=== PATIENT | female | born 1975 | race African-American/Black ===

== ENCOUNTER 2016-10-21 05:04 | Emergency (ER) | payer MEDICAID ==
[~2016-10-21] VITALS: Ht 160 cm; Wt 96.4 kg
[2016-10-21] MEDS ORDERED: AZITHROMYCIN 500 MG TABLET ONE (05:47)
[2016-10-21] MEDS ORDERED: CEFTRIAXONE 250 MG ONE (05:48)
[2016-10-21] MEDS ORDERED: AZITHROMYCIN 500 MG TABLET PO ONE (06:00)
[2016-10-21] MEDS ORDERED: CEFTRIAXONE 250 MG IM ONE (06:00)
[2016-10-21] MEDS ORDERED: BICILLIN-LA 2,400,000 UNITS/4 ML IM ONE (06:00)
[2016-10-21 06:22] LABS: HCG UR OBC PASS
[2016-10-21 06:26] VITALS: BP 165/110
== END 2016-10-21 06:29 | disposition home or self-care (01) ==
LOC: ED 05:39
DX: Z20.2 Contact with and (suspected) exposure to infections with a predominantly sexual mode of transmission (principal); A53.9 Syphilis, unspecified; A54.9 Gonococcal infection, unspecified; A74.9 Chlamydial infection, unspecified
CPT/HCPCS: 81003; 81025; 96372; 99284; J0561; J0696

== ENCOUNTER 2017-10-06 23:55 | Emergency (ER) | payer MEDICAID ==
[~2017-10-06] VITALS: Ht 160 cm; Wt 97.7 kg
[2017-10-07] MEDS ORDERED: BP MED (00:17)
[2017-10-07 01:28] LABS: BASOPHILS # (AUTO) 0.05 x10^3/uL (0-0.1); BASOPHILS % (AUTO) 1 % (0-1); EOSINOPHILS # (AUTO) 0.13 x10^3/uL (0-0.4); EOSINOPHILS % (AUTO) 1 % (1-7); LYMPHOCYTES # (AUTO) 3.75 x10^3/uL (1-3.4); LYMPHOCYTES % (AUTO) 40 % (22-44); MD NO; MEAN CORPUSCULAR HEMOGLOBIN 28.2 pg (27.0-34.8); MEAN CORPUSCULAR HGB CONC 32.5 g/dL (32.4-35.8); MEAN CORPUSCULAR VOLUME 86.8 fL (80-100); MEAN PLATELET VOLUME 8.6 fL (7.4-10.4); MONOCYTES # (AUTO) 0.77 x10^3/uL (0.2-0.8); MONOCYTES % (AUTO) 8 % (2-9); NEUTROPHILS # (AUTO) 4.79 x10^3/uL (1.8-6.8); NEUTROPHILS % (AUTO) 51 % (42-75); PLATELET COUNT 352 x10^3/uL (130-400); RED BLOOD COUNT 4.76 x10^6/uL (3.82-5.3); RED CELL DISTRIBUTION WIDTH 13.5 % (9.6-15.2)
[2017-10-07] MEDS ORDERED: BENZONATATE 100 MG CAPSULE ONE (01:28)
[2017-10-07 01:29] LABS: ALBUMIN 3.4 g/dL (3.4-5.0); ANION GAP 6 mmol/L (5-15); CALCIUM 8.9 mg/dL (8.5-10.1); CHLORIDE 108 mmol/L (98-107)
[2017-10-07] MEDS ORDERED: BENZONATATE 100 MG CAPSULE PO ONE (01:30)
[2017-10-07 01:33] LABS: ALANINE AMINOTRANSFERASE 30 U/L (12-78); ALKALINE PHOSPHATASE 94 U/L (45-117); BILIRUBIN,TOTAL 0.4 mg/dL (0.2-1.0); CREATININE 0.77 mg/dL (0.55-1.02); TOTAL PROTEIN 7.4 g/dL (6.4-8.2)
[2017-10-07 01:59] VITALS: BP 168/98
== END 2017-10-07 02:07 | disposition home or self-care (01) ==
LOC: ED 10-07 01:13
DX: G44.89 Other headache syndrome (principal); I10 Essential (primary) hypertension; R05 Cough; R09.81 Nasal congestion; F17.210 Nicotine dependence, cigarettes, uncomplicated
CPT/HCPCS: 36415; 71046; 80053; 85025; 99285

== ENCOUNTER 2018-01-01 03:18 | Emergency (ER) | payer MEDICAID ==
[~2018-01-01] VITALS: Ht 160 cm; Wt 94.1 kg
[~2018-01-01 03:18] MED LIST: BP MED
[2018-01-01 03:19] VITALS: BP 188/117
[2018-01-01] MEDS ORDERED: IBUPROFEN 200 MG TABLET ONE (04:14)
[2018-01-01] MEDS ORDERED: BICILLIN-LA 1,200,000 UNITS/2 ML IM ONE (04:30)
[2018-01-01] MEDS ORDERED: IBUPROFEN 200 MG TABLET PO ONE (04:30)
== END 2018-01-01 04:49 | disposition home or self-care (01) ==
LOC: ED 03:37
DX: J02.0 Streptococcal pharyngitis (principal); I10 Essential (primary) hypertension; F17.200 Nicotine dependence, unspecified, uncomplicated
CPT/HCPCS: 87880; 96372; 99283; J0561

== ENCOUNTER 2018-12-10 17:17 | Emergency (ER) | payer MEDICAID ==
[~2018-12-10] VITALS: Ht 160 cm; Wt 102.0 kg
--- NOTE | 2018-12-10 17:44 | NUR ---
Pt ambulates to room with steady gait and balance. NADN. No obvious defecits observed.
[2018-12-10 18:58] LABS: BASOPHILS % (AUTO) 1 % (0-1); EOSINOPHILS # (AUTO) 0.14 x10^3/uL (0-0.4); EOSINOPHILS % (AUTO) 1 % (1-7); LYMPHOCYTES # (AUTO) 2.98 x10^3/uL (1-3.4); LYMPHOCYTES % (AUTO) 28 % (22-44); MD NO; MEAN CORPUSCULAR HEMOGLOBIN 29.1 pg (27.0-34.8); MEAN PLATELET VOLUME 8.6 fL (7.4-10.4); MONOCYTES # (AUTO) 0.71 x10^3/uL (0.2-0.8); MONOCYTES % (AUTO) 7 % (2-9); NEUTROPHILS % (AUTO) 63 % (42-75); PLATELET COUNT 321 x10^3/uL (130-400); RED BLOOD COUNT 4.69 x10^6/uL (3.82-5.3); RED CELL DISTRIBUTION WIDTH 14.1 % (9.6-15.2)
[2018-12-10 19:07] VITALS: BP 158/99
[2018-12-10 19:08] LABS: ALBUMIN 3.5 g/dL (3.4-5.0); ANION GAP 7 mmol/L (5-15); CALCIUM 8.9 mg/dL (8.5-10.1); CHLORIDE 108 mmol/L (98-107)
--- NOTE | 2018-12-10 19:08 | NUR ---
Provided bedside report to MAURICE Salcido. All questions answered. NADN. Loly RN to assume care of pt at this time.
[2018-12-10 19:15] LABS: ALANINE AMINOTRANSFERASE 26 U/L (12-78); ALKALINE PHOSPHATASE 95 U/L (45-117); BILIRUBIN,TOTAL 0.2 mg/dL (0.2-1.0); CREATININE 0.93 mg/dL (0.55-1.02)
--- NOTE | 2018-12-10 20:09 | NUR ---
PATIENT SLEEPING IN ROOM, NO NEEDS IDENTIFIED. DIFFICULT TO WAKE PATIENT UP, PATIENT STATED THAT SHE WAS "TIRED". PATIENT'S PULSE OX WITHIN NORMAL LIMITS WHEN AWAKE AND STIMULATED. PATIENT DOES BEGAN TO DECREASE IN OXYGENATION WHILE SLEEPING, PATIENT SNORES. PATIENT DENIES ANY SLEEP APNEA. [facility].
--- NOTE | 2018-12-10 21:10 | NUR ---
PATIENT RESTING IN BED, NO NOTED NEEDS IDENTIFIED, VSS. WILL CONTINUE TO MONITOR.
--- NOTE | 2018-12-10 21:44 | NUR ---
Patient/Caregiver given discharge instructions and they have confirmed that they understand the instructions. Patient ambulatory with steady gait.
== END 2018-12-10 21:46 | disposition home or self-care (01) ==
LOC: ED 20:08
DX: R60.0 Localized edema (principal); I10 Essential (primary) hypertension
CPT/HCPCS: 36415; 80053; 83880; 84703; 85025; 93970; 99284

== ENCOUNTER 2019-12-25 07:00 | Observation (INO) | payer MEDICAID ==
[~2019-12-25] VITALS: Ht 160 cm; Wt 105.5 kg
--- NOTE | 2019-12-25 07:19 | NUR ---
Note undone in EDM - 12/25/19 at 0720 by [email or web address] THIS IS A 44 YO F W/ C/O BODYACHES, GRAY AND LOSS OF TASTE/SMELL X3 DAYS. PT REPORTS POSITIVE COVID CONTACT X2 WEEKS AGO. PT DENIES COUGH/SOB. PT RESTING ON [employer] W/ CALL LIGHT IN REACH, CONNECTED TO MONITORING. PT TACHYCARDIC, OTHER VS WDL. MICHELINE MILLER AT BEDSIDE FOR ED EVAL.
--- NOTE | 2019-12-25 07:21 | NUR ---
THIS IS A 44 YO F W/ C/O BODYACHES, GRAY AND LOSS OF TASTE/SMELL X3 DAYS. PT REPORTS POSITIVE COVID CONTACT X2 WEEKS AGO. PT DENIES COUGH/SOB. PT RESTING ON [employer] W/ CALL LIGHT IN REACH, CONNECTED TO MONITORING. PT TACHYCARDIC, AND HYPERTENSIVE OTHER VS WDL. MICHELINE MILLER AT BEDSIDE FOR ED EVAL.
--- NOTE | 2019-12-25 07:22 | NUR ---
PT STATES THAT SHE HAS NOT TAKEN CARLITOS LISINOPRIL TODAY.
--- NOTE | 2019-12-25 07:26 | NUR ---
PT AMBULATED TO THE BR W/ A STEADY GAIT. PROVIDED URINE CUP FOR SAMPLE.
[2019-12-25] MEDS ORDERED: ACETAMINOPHEN 500 MG TABLET PO ONE (07:30)
--- NOTE | 2019-12-25 07:31 | NUR ---
URINE COLLECTED AND SENT TO LAB. RAD IN ROOM.
[2019-12-25] MEDS ORDERED: ACETAMINOPHEN 500 MG TABLET ONE (07:32)
--- NOTE | 2019-12-25 07:37 | NUR ---
PT MEDICATED PER EMAR. LAB IN ROOM.
[2019-12-25 07:43] LABS: MICROSCOPIC NOT IND
--- NOTE | 2019-12-25 07:55 | NUR ---
PT DESAT TO 86% RA. PT REQUIRING 4L NC TO MAINTAIN SATS >92%.
--- NOTE | 2019-12-25 07:57 | NUR ---
MICHELINE MILLER UPDATED ON PT REGARDING NEW O2 REQUIREMENTS AND OTHER VS CONCERNING FOR SEPSIS CRITERIA. NEW ORDERS RECEIVED.
[2019-12-25] MEDS ORDERED: SODIUM CHLORIDE 0.9% 1,000ML IVBOLUS ONE (08:00)
[2019-12-25 08:03] LABS: BASOPHILS # (AUTO) 0.05 x10^3/uL (0-0.1); BASOPHILS % (AUTO) 1 % (0-1); EOSINOPHILS # (AUTO) 0.01 x10^3/uL (0-0.4); EOSINOPHILS % (AUTO) 0 % (1-7); LYMPHOCYTES # (AUTO) 1.45 x10^3/uL (1-3.4); LYMPHOCYTES % (AUTO) 21 % (22-44); MD NO; MEAN CORPUSCULAR HEMOGLOBIN 28.9 pg (27.0-34.8); MEAN CORPUSCULAR HGB CONC 31.7 g/dL (32.4-35.8); MEAN PLATELET VOLUME 8.5 fL (7.4-10.4); MONOCYTES # (AUTO) 0.89 x10^3/uL (0.2-0.8); MONOCYTES % (AUTO) 13 % (2-9); NEUTROPHILS # (AUTO) 4.55 x10^3/uL (1.8-6.8); NEUTROPHILS % (AUTO) 66 % (42-75); PLATELET COUNT 291 x10^3/uL (130-400); RED BLOOD COUNT 5.38 x10^6/uL (3.82-5.3); RED CELL DISTRIBUTION WIDTH 13.9 % (9.6-15.2)
[2019-12-25 08:09] LABS: ALBUMIN 3.6 g/dL (3.4-5.0); ANION GAP 7 mmol/L (5-15); CALCIUM 8.2 mg/dL (8.5-10.1); CHLORIDE 106 mmol/L (98-107)
[2019-12-25 08:15] LABS: CREATININE 0.71 mg/dL (0.55-1.02)
[2019-12-25] MEDS ORDERED: CEFTRIAXONE PMX 1GM/50ML 50 ML ONE (08:20)
--- NOTE | 2019-12-25 08:25 | NUR ---
PIV STARTED, 1ST SET OF CULTURES DRAWN, LAB IN ROOM FOR 2ND SET. 1L NS BOLUS AND ABX STARTED. PT RESTING ON [employer] W/ CALL LIGHT IN REACH. CONNECTED TO ALL MONITORING. RESP EVEN AND UNLABORED, BLAINE.
[2019-12-25] MEDS ORDERED: CEFTRIAXONE PMX 1GM/50ML 50 ML IVPB ONE (08:30)
[2019-12-25] MEDS ORDERED: AZITHROMYCIN 500 MG in SODIUM CHLORIDE 0.9% 250 ML IVPB ONE (08:30)
[2019-12-25 08:36] LABS: ALANINE AMINOTRANSFERASE 38 U/L (12-78); ALBUMIN 3.6 g/dL (3.4-5.0); ANION GAP 6 mmol/L (5-15); CALCIUM 8.2 mg/dL (8.5-10.1); CHLORIDE 105 mmol/L (98-107); CREATININE 0.72 mg/dL (0.55-1.02); D-DIMER (DIC) 0.52 ug/mlFEU (0.00-0.52)
[2019-12-25 08:41] LABS: ALKALINE PHOSPHATASE 82 U/L (45-117); BILIRUBIN,TOTAL 0.3 mg/dL (0.2-1.0); TOTAL PROTEIN 8.1 g/dL (6.4-8.2)
[2019-12-25] MEDS ORDERED: LOSA25TA12 PO (08:52)
[2019-12-25] MEDS ORDERED: HYDR50TA3 PO (08:52)
--- NOTE | 2019-12-25 08:58 | NUR ---
TELEPHONE CALL FROM LAB. INR RESULT LISTED COMMENT ON PT RESULT. INR 1.07 WDL.
--- NOTE | 2019-12-25 08:59 | NUR ---
REPORT GIVEN TO FERNANDO RICHARDS. PT READY FOR TRANSPORT AT THIS TIME. IV ABX INFUSING APPROPRIATELY. RESP EVEN AND UNLABORED, BLAINE.
[2019-12-25] MEDS ORDERED: HYDROcodone/APAP 5/325 TABLET PO PRN (09:00)
[2019-12-25] MEDS ORDERED: ACETAMINOPHEN 325 MG TABLET PO PRN (09:00)
[2019-12-25] MEDS ORDERED: GUAIFENESIN/DM 200-20MG, 10ML UDC PO PRN (09:00)
[2019-12-25] MEDS ORDERED: ONDANSETRON 2MG/ML, 2ML IVPush PRN (09:00)
[2019-12-25] MEDS ORDERED: FAMOTIDINE 20 MG/2 ML IVPush SCH (09:00)
[2019-12-25] MEDS ORDERED: TRAZODONE 50MG TABLET PO PRN (09:00)
[2019-12-25] MEDS ORDERED: ENOXAPARIN 40 MG/0.4 ML SQ SCH (09:00)
[2019-12-25] MEDS ORDERED: ENALAPRILAT 1.25 MG/ML, 2ML IVPush PRN (09:00)
[2019-12-25] MEDS ORDERED: ONDANSETRON ODT 4 MG PO PRN (09:00)
[2019-12-25] MEDS ORDERED: DEXAMETHASONE 4 MG/ML, 1ML IVPush SCH (09:00)
--- NOTE | 2019-12-25 09:19 | NUR ---
TELEPHONE CALL FROM LAB REPORTING THEY NEED TO REDRAW SED RATE. UNDERWEAR FINISHER GIVEN ROOM # PT WAS TRANSFERED TO.
[2019-12-25] MEDS ORDERED: SODIUM CHLORIDE FLUSH 10ML SYR IVF PRN (09:30)
[2019-12-25 09:35] VITALS: BP 167/118
[2019-12-25] MEDS ORDERED: LOSARTAN 25MG TABLET PO SCH (10:00)
[2019-12-25] MEDS ORDERED: HYDROCHLOROTHIAZIDE 25 MG TABLET PO SCH (10:00)
[2019-12-25] MEDS ORDERED: ACET325T26 PO (10:19)
[2019-12-25] MEDS ORDERED: AZIT500T10 PO (10:19)
[2019-12-25 10:57] LABS: HCT (SEDRATE) 48.5 % (34.6-47.8)
[2019-12-26] MEDS ORDERED: CEFTRIAXONE PMX 1GM/50ML 50 ML IV SCH (09:00)
== END 2019-12-25 10:46 | disposition home or self-care (01) ==
LOC: SUATTDRO 08:31 → ED 08:41 → INTOOBSV 09:41 → 4EST 09:41
PROVIDERS: ADMIT Hospitalist; ATTEND Hospitalist
DX: U07.1 COVID-19 (principal); R65.10 Systemic inflammatory response syndrome (SIRS) of non-infectious origin without acute organ dysfunction; J96.01 Acute respiratory failure with hypoxia; I10 Essential (primary) hypertension; F17.200 Nicotine dependence, unspecified, uncomplicated; Z79.899 Other long term (current) drug therapy
CPT/HCPCS: 36415; 71045; 80053; 81003; 82040; 82728; 83605; 83615; 84145; 84703; 85025; 85049; 85379; 85384; 85610; 85651; 85730; 86140; 87040; 87635; 93005; 96365; 96367; 99285; G0378; J0456; J0696; J7030; J7050; 80048

== ENCOUNTER 2020-06-27 04:46 | Emergency (ER) | payer MEDICAID ==
[~2020-06-27] VITALS: Ht 160 cm; Wt 114.2 kg
[~2020-06-27 04:46] MED LIST changes: +ACET325T26 PO; +AZIT500T10 PO; +HYDR50TA6 PO; +LOSA25TA12 PO
--- NOTE | 2020-06-27 05:06 | NUR ---
PT STATES HAVING COUGH 4 DAYS. PT DENIES FEVER OR CHILLS. NO SOB. PT STATES CP ONLY WHEN COUGHING. PT DENIES FATIGUE OR ST. PT ON MONITOR. PROVIDER AT BEDSIDE. WILL MONITOR, WARM BLANKET GIVEN.
--- NOTE | 2020-06-27 05:17 | NUR ---
PT FALLS ASLEEP AND SATS DROP TO 77%. NC PLACED AT 2L, PT WAKES UP AND SATS BACK TO MID 90'S. PROVIDER AWARE.
[2020-06-27] MEDS ORDERED: SODIUM CHLORIDE 0.9% 1,000ML IVBOLUS ONE (05:30)
[2020-06-27 06:11] LABS: ALBUMIN 3.5 g/dL (3.4-5.0); ANION GAP 6 mmol/L (5-15); CALCIUM 8.3 mg/dL (8.5-10.1); CHLORIDE 109 mmol/L (98-107); CREATININE 0.75 mg/dL (0.55-1.02)
[2020-06-27 06:19] LABS: BASOPHILS % (AUTO) 0 % (0-1); EOSINOPHILS % (AUTO) 2 % (1-7); LYMPHOCYTES % (AUTO) 26 % (22-44); MEAN CORPUSCULAR HEMOGLOBIN 29.1 pg (27.0-34.8); MEAN CORPUSCULAR HGB CONC 33.4 g/dL (32.4-35.8); MEAN PLATELET VOLUME 8.5 fL (7.4-10.4); MONOCYTES % (AUTO) 8 % (2-9); NEUTROPHILS % (AUTO) 64 % (42-75); PLATELET COUNT 384 x10^3/uL (130-400); RED CELL DISTRIBUTION WIDTH 14.1 % (9.6-15.2)
[2020-06-27 06:34] VITALS: BP 175/113
[2020-06-27 06:34] LABS: MD NO
[2020-06-27] MEDS ORDERED: DEXAMETHASONE 4 MG TABLET ONE (06:55)
[2020-06-27] MEDS ORDERED: DOXYCYCLINE 100MG TABLET ONE (06:56)
[2020-06-27] MEDS ORDERED: CEFTRIAXONE PMX 1GM/50ML 50 ML ONE (06:56)
[2020-06-27 06:58] LABS: AMPHETAMINE SCREEN, URINE Positive (Negative); BARBITURATE SCREEN, URINE Negative (Negative); BENZODIAZEPINE SCREEN, URINE Negative (Negative); CANNABINOID SCREEN, URINE Negative (Negative); COCAINE SCREEN, URINE Negative (Negative); METHADONE SCREEN, URINE Negative (Negative); OPIATE SCREEN, URINE Negative (Negative)
[2020-06-27] MEDS ORDERED: DEXAMETHASONE 4 MG TABLET PO ONE (07:00)
[2020-06-27] MEDS ORDERED: DOXYCYCLINE 100MG TABLET PO ONE (07:00)
[2020-06-27] MEDS ORDERED: CEFTRIAXONE PMX 1GM/50ML 50 ML IV ONE (07:00)
--- NOTE | 2020-06-27 07:00 | NUR ---
REPORT FROM MAURICE DIAZ. PT SLEEPING ON [place], NAD. NO NEEDS AT THIS TIME.
--- NOTE | 2020-06-27 07:00 | NUR ---
Pt with ambulation trial, had RA sats of 94% while ambulating. Pt went to BR, provided UA, and when back to room pt was 85% on RA. Pt placed back on 4L NC with sats back to mid 90's. Provider aware. NS bolus stopped atfer 400mL per physician.
--- NOTE | 2020-06-27 07:33 | NUR ---
PT BP HIGH NOTED. PT STATES SHE SHOULD BE ON BP MEDS BUT HAS BEEN NON-COMPLIANT. PT ALSO STATES "I SHOULD BE ON A MACHINE WHEN I SLEEP" PT LIVES WITH HER MOM. PT STATED THAT SHE WILL F/U WITH HER PMD.
--- NOTE | 2020-06-27 08:15 | NUR ---
Patient given discharge instructions and they have confirmed that they understand the instructions. Patient ambulatory with steady gait.
== END 2020-06-27 08:17 | disposition home or self-care (01) ==
LOC: ED 06:36
DX: J96.91 Respiratory failure, unspecified with hypoxia (principal); J12.9 Viral pneumonia, unspecified; Z20.822 Contact with and (suspected) exposure to COVID-19
CPT/HCPCS: 36415; 71045; 80048; 80307; 82040; 83605; 83880; 84145; 85025; 87040; 96365; 99284; J0696; J7030; U0003